=== PATIENT | female | born 1930 | race Caucasian/White ===

== ENCOUNTER 2018-11-06 06:57 | Day surgery (SDC) | payer MEDICARE, OTHER ==
[2018-11-01 08:48] VITALS: BMI 30.2
[~2018-11-06 06:57] MED LIST: DEXAMETHASONE SOD PHOSPHATE 10 MG/ML 1 ML VIAL IV ONE; HEPARIN SODIUM,PORCINE 5,000 UNIT/ML 1 ML VIAL SQ ONE; HYDROmorphone 0.5 MG/0.5 ML SYRINGE IVP PRN; MIDAZOLAM 2 MG/2 ML VIAL IV PRN; ONDANSETRON 4 MG/2 ML VIAL IVP ONE; SCOPOLAMINE 1.5MG/72HR PATCH TRANSDERM ONE; ceFAZolin IN SWFI 2 GM/20 ML SYRINGE IVP ONE
[2018-11-06] MEDS: LACTATED RINGERS 1,000 ML IV SCH (07:50)
[2018-11-06] MEDS ORDERED: LIDOCAINE 1% 20 ML VIAL (10MG/ML) FOR IV START INTRADERMA ONE ×2 (07:50→07:51)
--- NOTE | 2018-11-06 08:14 | P.GSHP ---
History of Present Illness H&P Date: 11/06/18 Chief Complaint: Right inguinal hernia Patient here today with complaints of a painful bulge right groin. She was last seen in the office in July. Symptoms started last fall. No change in bowel habits. Increased pain with activities. No previous hernias. Past Medical History Past Medical History: Cancer, Eye Disorder, Osteoarthritis (OA) Additional Past Medical History / Comment(s): hx skin ca, basal cell ca vulva x2 History of Any Multi-Drug Resistant Organisms: None Reported Past Surgical History: Hysterectomy, Orthopedic Surgery Additional Past Surgical History / Comment(s): ok cataracts, arthroscopy knee, basal cell ca removal x2 vulva Past Anesthesia/Blood Transfusion Reactions: No Reported Reaction Smoking Status: Former smoker - Past Family History Mother Family Medical History: No Reported History Medications and Allergies Home Medications Medication Instructions Recorded Confirmed Type Multivitamins, Thera [Multivitamin] 1 tab PO DAILY 02/08/16 11/01/18 History Aspirin [Adult Low Dose Aspirin EC] 1 tab PO DAILY 11/06/18 11/06/18 History Cyanocobalamin [Vitamin B-12] 500 mcg PO DAILY 11/06/18 11/06/18 History Flaxseed Oil [[place]-3 Flaxseed Oil] 1,000 mg PO DAILY 11/06/18 11/06/18 History Inulin/Chromium Picolinate [Fiber 1 tab PO DAILY 11/06/18 11/06/18 History Gummies Chew] Magnesium Gluconate [Magonate] 500 mg PO DAILY 11/06/18 11/06/18 History Red Yeast Rice 600 mg PO DAILY 11/06/18 11/06/18 History Vitamin E 100 unit PO DAILY 11/06/18 11/06/18 History Allergies Allergy/AdvReac Type Severity Reaction Status Date / Time No Known Allergies Allergy Verified 11/01/18 08:44 Surgical - Exam Vital Signs Temp Pulse Resp BP Pulse Ox 97.8 F 89 16 180/89 97 11/06/18 07:17 11/06/18 07:17 11/06/18 07:17 11/06/18 07:17 11/06/18 07:17 Physical exam: General: Well-developed, well-nourished HEENT: Normocephalic, sclerae nonicteric Abdomen: Nontender, nondistended, reducible right inguinal hernia Extremities: No edema Neuro: Alert and oriented Assessment and Plan (1) Right inguinal hernia Narrative/Plan: Will proceed with da Ten assisted right inguinal hernia repair, possible open with mesh, possible bilateral at this time. Risks of bleeding, infection, recurrence, bladder and bowel injury, numbness, nerve injury, conversion to an open procedure were discussed with the patient. The patient understands and wishes to proceed. Current Visit: Yes Status: Acute Code(s): K40.90 - UNIL INGUINAL HERNIA, W/ O OBST OR GANGR, NOT SPCF RECUR [facility] Code(s): 958477584
[2018-11-06] MEDS ORDERED: PROPOFOL 10 MG/ML 20 ML VIAL IV ONE (08:21)
[2018-11-06] MEDS ORDERED: SUCCINYLCHOLINE CHLORIDE 100 MG/5 ML SYR IV ONE (08:21)
[2018-11-06] MEDS ORDERED: GLYCOPYRROLATE 0.2 MG/ML 2 ML VIAL ONE (08:21)
[2018-11-06] MEDS ORDERED: NEOSTIGMINE 1 MG/ML 10 ML VIAL ONE (08:21)
[2018-11-06] MEDS ORDERED: fentaNYL (PF) 50 MCG/ML 2 ML AMP ONE (08:21)
[2018-11-06] MEDS ORDERED: LIDOCAINE 1% INJ 10MG/ML (20 ML MDV) ONE (08:21)
[2018-11-06] MEDS ORDERED: BUPIVACAINE (PF) 0.25% 30 ML VIAL SQ ONE ×2 (09:06→10:05)
[2018-11-06] MEDS ORDERED: HYDROcodone/APAP 5-325MG 1 EACH TAB PO PRN (10:14)
[2018-11-06] MEDS ORDERED: NALOXONE 0.4 MG/ML 1 ML VIAL IV PRN (10:14)
--- NOTE | 2018-11-06 10:17 | P.OP ---
Date of Procedure: 11/06/18 Procedure(s) Performed: PREOPERATIVE DIAGNOSIS: Right inguinal hernia POSTOPERATIVE DIAGNOSIS: Same, intra-abdominal adhesions PROCEDURE: Laparoscopic repair right inguinal hernia with the da Ten robot assistance with mesh, laparoscopic lysis of adhesions SURGEON: Solomon EBL: Minimal ANESTHESIA: General COMPLICATIONS: None OPERATIVE PROCEDURE: Patient was placed in the operating table in the supine position. The patient was placed under general anesthesia. The patient was then placed in lithotomy. The abdomen was prepped and draped in usual sterile fashion. A small curvilinear supraumbilical incision was made. The fascia was retracted anteriorly with Ysabel forceps. The Veress needle was inserted. The saline drop test was normal. Insufflation took place to 15 mmHg. A 5 mm trocar was placed into the peritoneal cavity. This was later switched to a 12 mm trocar. 2 additional 8 mm trochars were placed in the right upper quadrant and left upper quadrant under visualization. The patient had adhesions between the midline below the umbilicus and the omentum and small bowel. An additional 5 mm trocar was placed in the lateral left abdomen under direct visualization. Sharply with sparing use of cautery these adhesions were lysed. Swept without difficulty. The robotic arms were then brought in and docked into place. The fenestrated bipolar was used in the left arm and the laparoscopic nicole was utilized in the right arm. A 30 12 mm scope was used in the up position. The peritoneal cavity was inspected. The patient had a moderate sized indirect right inguinal hernia. There was no evidence of a hernia on the left-hand side. The peritoneum was incised in a horizontal fashion cephalad to the internal inguinal ring. Following that careful dissection of the preperitoneal space took place. This took place using both electrocautery, sharp dissection but primarily blunt dissection. Visualization of the pubic tubercle and Rayshawn' s ligament took place medially. Full dissection took place laterally as well. The hernia sac was fully dissected. Once we had adequate space the 15 x 10 progrip mesh was advanced into the preperitoneal space and flattened out appropriately to cover all potential hernia sites. No sutures were used. The peritoneal defect was then closed using a locking 2-0 VLok suture. The hernia sac was incorporated into the peritoneal closure to prevent recurrence. The pneumoperitoneum was then evacuated. The fascia at the 12 mm site was closed using the Price Yates technique and an 0 Vicryl stitch. The skin of all 3 sites was closed using a 4-0 Monocryl stitch. Skin glue was then applied. DISPOSITION: Stable to recovery room
[2018-11-06 10:24] VITALS: TEMP 97.9
[2018-11-06] MEDS ORDERED: LABETALOL SYRINGE 5 MG/ML IVP ONE ×2 (10:35→10:45)
[2018-11-06] MEDS ORDERED: fentaNYL (PF) 50 MCG/ML 2 ML AMP IVP ONE (10:55)
[2018-11-06 11:20] VITALS: RESP 16
[2018-11-06] MEDS ORDERED: HYDROcodone/APAP 5-325MG 1 EACH TAB PO ONE (11:38)
[2018-11-06 13:43] VITALS: BP 123/65; PULSE 72
== END 2018-11-06 13:41 | disposition home or self-care (01) ==
LOC: OR 06:57
PROVIDERS: ATTEND Surgery
DX: K40.90 Unilateral inguinal hernia, without obstruction or gangrene, not specified as recurrent (principal); K66.0 Peritoneal adhesions (postprocedural) (postinfection); M19.90 Unspecified osteoarthritis, unspecified site; E78.5 Hyperlipidemia, unspecified; Z87.891 Personal history of nicotine dependence; Z85.828 Personal history of other malignant neoplasm of skin; Z79.82 Long term (current) use of aspirin; Z79.899 Other long term (current) drug therapy
CPT/HCPCS: 49650; C1781; J1644; J1100; J2710; J2405; J2001; J3010; J0330; J2704; J0690